=== PATIENT | female | born 1930 | race Caucasian/White ===

== ENCOUNTER → 2017-05-02 | Outpatient (CLI) | payer MEDICARE, OTHER ==
[~2017-05-02] MED LIST: ALN70T PO; ALPR.5T PO; ALPR1T PO; ASP81TEC PO; ATR20T PO; CARV25TA PO; CLOP75TA PO; FRSM20T PO; KCL10CCR PO; METO50TA7 PO; MULT-608 PO; OMG1KC PO; VLS80C PO
[2017-05-02 09:44] LABS: ALANINE AMINOTRANSFERASE 12 U/L (0-55); ALBUMIN 3.9 GM/DL (3.2-4.5); ALKALINE PHOSPHATASE 68 U/L (40-136); BILIRUBIN,TOTAL 0.6 MG/DL (0.1-1.0); BUN/CREATININE RATIO 22; CALCIUM 8.7 MG/DL (8.5-10.1); CARBON DIOXIDE 27 MMOL/L (21-32); CHLORIDE 109 MMOL/L (98-107); CHOLESTEROL 179 MG/DL (< 200); CREATININE SERUM 0.81 MG/DL (0.60-1.30); GFR ESTIMATED > 60; GLUCOSE 101 MG/DL (70-105); HDL CHOLESTEROL 46 MG/DL (40-60); SODIUM 140 MMOL/L (135-145); TOTAL PROTEIN 6.5 GM/DL (6.4-8.2); TRIGLYCERIDES 81 MG/DL (<150); VLDL CHOLESTEROL 16 MG/DL (5-40)
== END ==
LOC: LAB 09:05
PROVIDERS: ATTEND Nurse Practitioner Family
DX: I25.10 Atherosclerotic heart disease of native coronary artery without angina pectoris (principal); I65.29 Occlusion and stenosis of unspecified carotid artery; E78.5 Hyperlipidemia, unspecified; I10 Essential (primary) hypertension
CPT/HCPCS: 36415; 80053; 80061

== ENCOUNTER → 2018-07-04 | Outpatient (CLI) | payer MEDICARE, OTHER ==
[2018-07-04 11:52] LABS: ALANINE AMINOTRANSFERASE 13 U/L (0-55); ALBUMIN 4.1 GM/DL (3.2-4.5); ALKALINE PHOSPHATASE 61 U/L (40-136); BILIRUBIN,TOTAL 0.6 MG/DL (0.1-1.0); BUN/CREATININE RATIO 18; CALCIUM 9.5 MG/DL (8.5-10.1); CARBON DIOXIDE 26 MMOL/L (21-32); CHLORIDE 109 MMOL/L (98-107); CHOLESTEROL 186 MG/DL (< 200); CREATININE SERUM 0.85 MG/DL (0.60-1.30); GFR ESTIMATED > 60; GLUCOSE 97 MG/DL (70-105); HDL CHOLESTEROL 55 MG/DL (40-60); POTASSIUM 4.2 MMOL/L (3.6-5.0); SODIUM 143 MMOL/L (135-145); TOTAL PROTEIN 6.8 GM/DL (6.4-8.2); TRIGLYCERIDES 81 MG/DL (<150); VLDL CHOLESTEROL 16 MG/DL (5-40)
== END ==
LOC: LAB 11:04
PROVIDERS: ATTEND Nurse Practitioner Family
DX: E78.5 Hyperlipidemia, unspecified (principal)
CPT/HCPCS: 36415; 80053; 80061

== ENCOUNTER 2020-12-06 10:11 | Emergency (ER) | payer MEDICARE, OTHER ==
[~2020-12-06] VITALS: Ht 162.5 cm; Wt 46.8 kg
--- NOTE | 2020-12-06 11:05 | ED Fall/Injury ---
General Chief Complaint: Trauma-Non Activation Stated Complaint: FALL/R HIP PAIN Nursing Triage Note: AMB TO ED REPORTS THIS AM HOUSE WAS DARK AND SHE WENT TO MAKE TEA AND TRIPPED OVER THE DOG BED LANDING ON HER BOTTEM C/O R HIP PAIN Source: patient Exam Limitations: no limitations History of Present Illness Date Seen by Provider: Dec 06, 2020 Time Seen by Provider: 10:45 Initial Comments Here with report of fall this morning. Apparently she was walking in the dark and went to sit down on the couch when she missed and hit her right hip on the end table and landed on her bottom on the floor. Denies hitting her head or other pain problems. She was able to walk and actually work this morning for a little while and then was concerned about may be that she chipped her hip for something and wanted to get that checked out. She arrives for evaluation for right hip pain. She does have pain to the posterior hip/buttock area. She denies other problems. She is adamant that she did not hit her head and denies headache or other injuries to the head. Occurred: this morning (Approximately 6:30 AM) Severity: mild Injuries/Pain Location: pelvis Loss of Consciousness: no loss of consciousness Modifying Factors: Worse With Movement; Improves With Rest Associated Symptoms (Fall): Denies Symptoms Allergies and Home Medications Allergies Coded Allergies: amlodipine (Unverified Allergy, Severe, ITCHING & SWELLING, 06/23/15) Penicillins (Unverified Allergy, Unknown, 06/23/15) atorvastatin (Unverified Allergy, Unknown, hives-sores, 12/24/13) metoprolol (Unverified Allergy, Unknown, hives-sores, 12/24/13) Patient Home Medication List Home Medication List Reviewed: Yes Alendronate Sodium (Fosamax) 70 Mg Tab, 70 MG PO WEEKLY ON MONDAY, (Reported) Entered as Reported by: TERRENCE OCONNOR on 10/06/09 1607 Alprazolam (Xanax) 1 Mg Tablet, 1 MG PO HS, (Reported) Entered as Reported by: LENNY BOWLES on 09/25/12 1541 Aspirin (Aspirin Ec 81 Mg) 81 Mg Tabec, 81 MG PO HS, (Reported) Entered as Reported by: TERRENCE OCONNOR on 10/06/09 1607 Clopidogrel Bisulfate (Plavix 75 Mg) 75 Mg Tablet, 75 MG PO HS, (Reported) Entered as Reported by: TERRENCE OCONNOR on 10/06/09 160 Furosemide (Lasix Tab) 20 Mg Tab, 20 MG PO DAILY PRN for SWELLING, (Reported) Entered as Reported by: TERRENCE OCONNOR on 10/06/09 160 Multivitamins (Multiple Vitamin) 1 Tab Tablet, 1 TAB PO HS, (Reported) Entered as Reported by: TERRENCE OCONNOR on 10/06/09 160 Potassium Chloride (Klor-Con 10) 10 Meq Tablet.sa, 10 MEQ PO DAILY, (Reported) Entered as Reported by: TERRENCE OCONNOR on 10/06/09 160 Valsartan (Diovan 80 Mg) 80 Mg Tablet, 160 MG PO HS, (Reported) Entered as Reported by: TERRENCE OCONNOR on 10/06/091606 Review of Systems Review of Systems Constitutional: No fever, No weakness Respiratory: no symptoms reported Cardiovascular: no symptoms reported Musculoskeletal: joint pain, muscle pain Skin: change in color; No lesions Psychiatric/Neurological: Denies Headache, Denies Numbness Past Mggtgih-Zbcvev-Vrwhmp Hx Patient Social History Tobacco Use?: No Substance use?: No Immunizations Up To Date First/Initial COVID19 Vaccinat: JUNE Second COVID19 Vaccination Chaparro: JULY COVID19 Vaccine Brand Mgr: NADIA Past Medical History Surgeries: Yes Respiratory: No Cardiac: Yes Coronary Artery Disease Family Medical History No Pertinent Family Hx Physical Exam Vital Signs Vital Signs - First Documented 12/06/20 10:30 Temp 36.7 Pulse 73 Resp 18 B/P (MAP) 171/100 (123) Pulse Ox 100 O2 Delivery Room Air Capillary Refill : Less Than 3 Seconds Height, Weight, BMI Height: 5'4.00" Weight: 131lbs. oz. 59.446671el; 17.00 BMI Method: General Appearance: WD/WN, no apparent distress Cardiovascular: regular rate, rhythm, no murmur Respiratory: lungs clear, normal breath sounds Back: no CVA tenderness, no vertebral tenderness Extremities: pelvis stable, other (Pain to the right hip posterior aspect. There is a small bruise to the mid posterior buttock on the right. No pain in the leg, knee or foot on the right or left. She has full range of motion with both legs with sensation intact and movement to the toes. She is able to straight leg raise and hold on both sides.) Skin: warm/dry, ecchymosis (As above) [place] Coma Score Best Eye Response: (4) Open Spontaneously Best Verbal Response: (5) Oriented Best Motor Response: (6) Obeys Commands Progress/Results/Core Measures Results/Orders My Orders Orders - JOSÉ MIGUEL BALDWIN MD Pelvis With Right Hip 2-3views (12/06/20 10:55) Vital Signs/I&O 12/06/20 10:30 Temp 36.7 Pulse 73 Resp 18 B/P (MAP) 171/100 (123) Pulse Ox 100 O2 Delivery Room Air Blood Pressure Mean: 123 Progress Progress Note : Progress Note Seen and evaluated. X-ray right hip and pelvis ordered. Patient declines pain medicine. Monitor patient. Diagnostic Imaging Diagonstic Imaging: Xray Plain Films/CT/US/NM/MRI: pelvis, hip Comments No obvious acute fractures noted on hip and pelvis x-ray films. Pending final results. [facility]. [place], [place] NAME: GORDON BURNETTE I [facility] REC#: [id number] PT STATUS: REG ER : 1930 PHYSICIAN: JOSÉ MIGUEL BALDWIN MD ADMIT DATE: 12/06/20/ER Draft Date of Exam:12/06/20 PELVIS WITH RIGHT HIP 2-3VIEWS CLINICAL INDICATION: Patient with pelvic pain. Patient tripped over dog landing on her bottom. Patient complains of right hip pain. EXAM: X-ray of the pelvis AP view and x-ray of the right hip, AP and frog-leg views. COMPARISON: None. FINDINGS: There is no acute fracture or dislocation. There is moderate enthesopathy of the greater trochanter regions. Bowel gas obscures some portions of the sacrum and iliac crests. There is no gross fracture seen in this region. 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 IMPRESSION: There is no acute fracture or dislocation. Dictated on workstation # [id number] Dict: 12/06/20 1136 Trans: 12/06/20 1138 ACB [id number] Interpreted by: PADMINI FRANKLIN MD Electronically signed by: Reviewed: Reviewed by Me Departure Impression Primary Impression: Contusion of right hip Qualified Codes: S70.01XA - Contusion of right hip, initial encounter Disposition: HOME, SELF-CARE Condition: Stable Departure-Patient Inst. Decision time for Depature: 11:35 Referrals: SELFCOLE MD (PCP/Family) Primary Care Physician Patient Instructions: Contusion (DC) Add. Discharge Instructions: All discharge instructions reviewed with patient and/or family. Voiced understanding. There does not appear to be fractures on your x-ray. You do have bruising to the right hip. You may use ice packs to area of concern 20 min/h as needed to reduce pain. You may take Tylenol/acetaminophen 650 mg every 6 to 8 hours as needed for pain. Follow-up with your doctor for recheck. Return for worse pain, swelling, weakness, numbness, difficulty with walking, headache, vision or balance problems or other concerns as needed. JOSÉ MIGUEL BALDWIN MD Dec 06, 2020 11:05
--- NOTE | 2020-12-06 11:38 | Diagnostic Imaging Report ---
CLINICAL INDICATION: Patient with pelvic pain. Patient tripped over dog landing on her bottom. Patient complains of right hip pain. EXAM: X-ray of the pelvis AP view and x-ray of the right hip, AP and frog-leg views. COMPARISON: None. FINDINGS: There is no acute fracture or dislocation. There is moderate enthesopathy of the greater trochanter regions. Bowel gas obscures some portions of the sacrum and iliac crests. There is no gross fracture seen in this region. 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 IMPRESSION: There is no acute fracture or dislocation. Dictated by: Dictated on workstation # [id number]
[2020-12-06 12:35] VITALS: BP 180/85
== END 2020-12-06 12:35 | disposition home or self-care (01) ==
LOC: EDUNIT# 10:11 → ER 10:14
DX: S70.01XA Contusion of right hip, initial encounter (principal); S30.0XXA Contusion of lower back and pelvis, initial encounter; Z79.82 Long term (current) use of aspirin; Z79.01 Long term (current) use of anticoagulants; W22.8XXA Striking against or struck by other objects, initial encounter

== ENCOUNTER 2021-07-26 17:57 | Emergency (ER) | payer MEDICARE, OTHER ==
[~2021-07-26] VITALS: Ht 157.5 cm; Wt 49.8 kg
--- NOTE | 2021-07-26 18:22 | ED Upper Extremity ---
General Chief Complaint: Laceration Stated Complaint: LEFT ARM LACERATION Source: patient Exam Limitations: no limitations History of Present Illness Date Seen by Provider: Jul 26, 2021 Time Seen by Provider: 19:08 Initial Comments This is a well-appearing 89-year-old female who presented to the ER with complaints of a laceration to her left upper arm. States that she was working on her chicken coop when a piece of the roof slid down and caught her arm around noon today. States that she "had too much to do" and was going to allow it to heal on its own. However it continued to ooze throughout the day so she presented to the ER to help stop the bleeding. She does take Plavix and aspirin. Denies any pain at this time. No other injuries reported. Unknown last tetanus. Allergies and Home Medications Allergies Coded Allergies: amlodipine (Unverified Allergy, Severe, ITCHING & SWELLING, 06/23/15) Penicillins (Unverified Allergy, Unknown, 06/23/15) atorvastatin (Unverified Allergy, Unknown, hives-sores, 12/24/13) metoprolol (Unverified Allergy, Unknown, hives-sores, 12/24/13) Patient Home Medication List Home Medication List Reviewed: Yes Alendronate Sodium (Fosamax) 70 Mg Tab, 70 MG PO WEEKLY ON MONDAY, (Reported) Entered as Reported by: TERRENCE OCONNOR on 10/06/09 160 Alprazolam (Xanax) 1 Mg Tablet, 1 MG PO HS, (Reported) Entered as Reported by: LENNY BOWLES on 09/25/12 154 Aspirin (Aspirin Ec 81 Mg) 81 Mg Tabec, 81 MG PO HS, (Reported) Entered as Reported by: TERRENCE OCONNOR on 10/06/09 160 Cephalexin (Cephalexin) 500 Mg Tablet, 500 MG PO TID Prescribed by: MARILIA SANDOVAL on 07/26/211940 Clopidogrel Bisulfate (Plavix 75 Mg) 75 Mg Tablet, 75 MG PO HS, (Reported) Entered as Reported by: TERRENCE OCONNOR on 10/06/09 160 Furosemide (Lasix Tab) 20 Mg Tab, 20 MG PO DAILY PRN for SWELLING, (Reported) Entered as Reported by: TERRENCE OCONNOR on 10/06/09 160 Multivitamins (Multiple Vitamin) 1 Tab Tablet, 1 TAB PO HS, (Reported) Entered as Reported by: TERRENCE OCONNOR on 10/06/09 160 Potassium Chloride (Klor-Con 10) 10 Meq Tablet.sa, 10 MEQ PO DAILY, (Reported) Entered as Reported by: TERRENCE OCONNOR on 10/06/09 160 Valsartan (Diovan 80 Mg) 80 Mg Tablet, 160 MG PO HS, (Reported) Entered as Reported by: TERRENCE OCONNOR on 10/06/091606 Review of Systems Constitutional: no symptoms reported EENTM: no symptoms reported Respiratory: no symptoms reported Musculoskeletal: no symptoms reported Skin: see HPI Past Owoxhir-Jyjlqh-Ryztry Hx Patient Social History Tobacco Use?: No Use of E-Cig and/or Vaping dev: No Substance use?: No Alcohol Use?: No Pt feels they are or have been: No Immunizations Up To Date First/Initial COVID19 Vaccinat: JUNE Second COVID19 Vaccination Chaparro: July COVID19 Vaccination Date: JUNE Past Medical History Surgeries: Yes Respiratory: No Cardiac: Yes Coronary Artery Disease Family Medical History No Pertinent Family Hx Physical Exam Vital Signs Vital Signs - First Documented 07/26/21 07/26/21 18:13 19:49 Temp 36.6 Pulse 78 Resp 16 B/P (MAP) 185/86 (119) Pulse Ox 98 O2 Delivery Room Air Capillary Refill : Height, Weight, BMI Height: 5'4.00" Weight: 131lbs. oz. 59.081814ol; 17.00 BMI Method: General Appearance: WD/WN, no apparent distress HEENT: PERRL/EOMI, normal ENT inspection Neck: full range of motion, normal inspection Cardiovascular: regular rate, rhythm, no murmur Respiratory: lungs clear, normal breath sounds Gastrointestinal: normal bowel sounds, non tender, soft Back: normal inspection Shoulder: normal inspection, non-tender, no evidence of injury Elbow/Forearm: deformity, ecchymosis, soft tissue tenderness, swelling Wrist: Yes normal inspection, Yes non-tender, Yes no evidence of injury, Yes normal ROM Hand: normal inspection, non-tender, no evidence of injury, normal ROM Neurologic/Psychiatric: no motor/sensory deficits, alert, normal mood/affect, oriented x 3 Skin: normal color, warm/dry Procedures/Interventions Wound Location: Upper Extremities Other Wound Location Left forearm Wound Length (cm): 4 Wound's Depth, Shape: linear, sub Q Wound Explored: clean Betadine Prep?: Yes Anesthesia: 1% Lidocaine Volume Anesthetic (ccs): 4 Wound Debrided: minimal Suture: Ethlion Suture Size: 4-0 Number of Sutures: 7 Progress/Results/Core Measures Results/Orders My Orders Orders - MARILIA SANDOVAL APRN Dipht,Pertuss(Acell),Tet Adult (Boostrix (07/26/21 18:30) Forearm, Left, 2 Views (07/26/21 ) Cephalexin Capsule (Keflex Capsule) (07/26/21 19:45) Medications Given in ED Vital Signs/I&O Diagnostic Imaging Diagonstic Imaging: Xray Comments [facility] [place] [place] NAME: GORDON BURNETTE I [facility] REC#: [id number] PT STATUS: DEP ER : 1930 PHYSICIAN: MARILIA SANDOVAL APRN ADMIT DATE: 07/26/21/ER Signed Date of Exam:07/26/21 FOREARM, LEFT, 2 VIEWS INDICATION: LACERATION COMPARISON: None. FINDINGS: 2 views of the left forearm were obtained and show no fractures, dislocations, or other acute bony abnormalities. Joint spaces are well maintained throughout. The soft tissues appear unremarkable. No radiopaque foreign bodies are identified. IMPRESSION: Unremarkable radiographic exam of the left forearm. Dictated by: Dictated on workstation # [id number] Dict: 07/26/211839 Trans: 07/26/212030 CVB [id number] Interpreted by: ALTHEA LOPEZ MD Electronically signed by: ALTHEA LOPEZ MD 07/26/212030 Departure Impression Primary Impression: Laceration Disposition: 01 HOME, SELF-CARE Condition: Improved Departure-Patient Inst. Decision time for Depature: 19:37 Referrals: SELFCOLE MD (PCP/Family) Primary Care Physician Patient Instructions: Laceration Repair With Stitches ED Add. Discharge Instructions: Plan: 1. Avoid bathing and soaking, no swimming while sutures are in place. 2. Monitor for signs of infection: increased redness, drainage, swelling, pain. 3. You do have a hematoma at the site (collection of blood) you will have moderate bruising from the initial injury. 4. Return in 7-10 days to have your (7) sutures removed. 5. Take antibiotics as directed and complete full course. 6. Return for any new, concerning, or worsening symptoms. All discharge instructions reviewed with patient and/or family. Voiced understanding. Scripts Cephalexin (Cephalexin) 500 Mg Tablet 500 MG PO TID for 5 Days, #14 TAB 0 Refills Prov: MARILIA SANDOVAL APRN 07/26/21 MARILIA SANDOVAL APRN Jul 26, 2021 18:22
[2021-07-26] MEDS ORDERED: TETANUS,DIPTH,PERTUSS P/F (BOOSTRIX) 0.5 ML VIAL IM ONE (18:30)
--- NOTE | 2021-07-26 18:42 | Diagnostic Imaging Report ---
INDICATION: LACERATION COMPARISON: None. FINDINGS: 2 views of the left forearm were obtained and show no fractures, dislocations, or other acute bony abnormalities. Joint spaces are well maintained throughout. The soft tissues appear unremarkable. No radiopaque foreign bodies are identified. IMPRESSION: Unremarkable radiographic exam of the left forearm. Dictated by: Dictated on workstation # [id number]
[2021-07-26] MEDS ORDERED: CEPH500T PO (19:41)
[2021-07-26] MEDS ORDERED: CEPHALEXIN 250 MG (KEFLEX) CAP PO ONE (19:45)
[2021-07-26 19:49] VITALS: BP 165/89
== END 2021-07-26 19:50 | disposition home or self-care (01) ==
LOC: EDUNIT# 17:57 → ER 18:01
DX: S51.812A Laceration without foreign body of left forearm, initial encounter (principal); Z23 Encounter for immunization; Z79.02 Long term (current) use of antithrombotics/antiplatelets; Z79.82 Long term (current) use of aspirin; W20.8XXA Other cause of strike by thrown, projected or falling object, initial encounter; Y92.72 Chicken coop as the place of occurrence of the external cause; Y93.89 Activity, other specified
CPT/HCPCS: 12002; 73090; 90715